=== PATIENT | female | born 1940 | race Caucasian/White ===

== ENCOUNTER 2017-02-27 12:54 | Emergency (ER) | payer MEDICARE, BC ==
[~2017-02-27] VITALS: Ht 152.4 cm; Wt 81.6 kg
[~2017-02-27 12:54] MED LIST: ACET325T53 PO; AMMO385C4 TP; BACL10TA PO; BUPR100T13 PO; CALC-555 PO; CELE-85 PO; DESL5TAB42 PO; DULO60CA63 PO; FENT1PAT5 TD; FLUT16SP2 ALT NOSTRI; FURO40TA5 PO; GABA800T2 PO; HYDR2TAB8 PO; LEVO100T10 PO; LIDO30AD10 TD; MECL-126 PO; METH20TA9 PO; METO25TA6 PO; MONT10TA22 PO; NITR100C11 PO; PANT40TA4 PO; POTA10TA15 PO; RIVA10TA PO; SENN-86 PO; SIMV10TA6 PO; SPIR25TA4 PO; TIOT18CA3 IH; [UNRECOGNIZED DRUG - CODE] PO
--- NOTE | 2017-02-27 13:43 | NUR ---
Pt ambulatory to bed 4a via walker, dr caceres at bedside for exam.
--- NOTE | 2017-02-27 13:43 | NUR ---
Pt to ct via wc.
--- NOTE | 2017-02-27 14:09 | NUR ---
Pt back from ct and waiting for results.
--- NOTE | 2017-02-27 14:47 | NUR ---
Pt dc;ed home w/ aci.
[2017-02-27 14:48] VITALS: BP 130/78
== END 2017-02-27 14:49 | disposition home or self-care (01) ==
LOC: ER 12:54
DX: S05.11XA Contusion of eyeball and orbital tissues, right eye, initial encounter (principal); S09.90XA Unspecified injury of head, initial encounter; F17.200 Nicotine dependence, unspecified, uncomplicated; I10 Essential (primary) hypertension; I50.9 Heart failure, unspecified; I25.10 Atherosclerotic heart disease of native coronary artery without angina pectoris; J44.9 Chronic obstructive pulmonary disease, unspecified; E03.9 Hypothyroidism, unspecified; Z88.0 Allergy status to penicillin; Z88.2 Allergy status to sulfonamides; Z88.8 Allergy status to other drugs, medicaments and biological substances; Z88.6 Allergy status to analgesic agent; Z91.018 Allergy to other foods; W18.30XA Fall on same level, unspecified, initial encounter; Y93.89 Activity, other specified; Y99.8 Other external cause status; Y92.89 Other specified places as the place of occurrence of the external cause
CPT/HCPCS: 70450; 70480; 99284; A4663

== ENCOUNTER 2017-03-26 17:07 | Inpatient (IN) | payer MEDICARE, BC ==
[~2017-03-26] VITALS: Ht 152.4 cm; Wt 79.0 kg
[2017-03-26] MEDS ORDERED: DOCU100T2 PO (18:01)
[2017-03-26] MEDS ORDERED: MENT71OI TP (18:01)
[2017-03-26] MEDS ORDERED: DICL100G3 TP (18:01)
[2017-03-26] MEDS ORDERED: ATOR10TA PO (18:01)
[2017-03-26] MEDS ORDERED: [UNRECOGNIZED DRUG - CODE] TP (18:01)
[2017-03-26] MEDS ORDERED: NAPR220T66 PO (18:01)
[2017-03-26] MEDS ORDERED: METO2.5T2 PO (18:01)
--- NOTE | 2017-03-26 18:52 | NUR ---
dr mehta at the bedside for eval and exam.
[2017-03-26] MEDS ORDERED: IV NORMAL SALINE 1000 ML BAG IV ONE (19:00)
[2017-03-26] MEDS ORDERED: VANCOMYCIN IV 1,000 MG in IV DEXTROSE 5% 250 ML IV ONE (19:00)
[2017-03-26] MEDS ORDERED: CLINDAMYCIN PHOSPHATE IV 600 MG in IV DEXTROSE 5% 100 ML IV ONE (19:00)
[2017-03-26 19:21] LABS: BASOPHILS # (AUTO) 0.1 K/uL (0.0-8.0); EOSINOPHILS # (AUTO) 0.3 K/uL (0.0-0.7); EOSINOPHILS % (AUTO) 2.6 % (0.0-7.0); HEMATOCRIT 34.3 % (37-47); HEMOGLOBIN 11.3 G/DL (12.0-16.0); LYMPHOCYTES # (AUTO) 1.1 K/uL (20.0-40.0); LYMPHOCYTES % (AUTO) 9.8 % (20.5-51.5); MEAN CORPUSCULAR HEMOGLOBIN 28.5 UUG (27.0-31.0); MEAN CORPUSCULAR HGB CONC 33 g/dL (32.0-37.0); MEAN CORPUSCULAR VOLUME 86.5 FL (81.0-99.0); MONOCYTES # (AUTO) 1.3 K/uL (2.0-10.0); MONOCYTES % (AUTO) 10.9 % (0.0-11.0); NEUTROPHILS # (AUTO) 8.8 K/uL (1.8-8.9); NEUTROPHILS % (AUTO) 75.7 % (38.5-71.5); PLATELET COUNT (AUTO) 277 K/UL (150-450); RED BLOOD CELL COUNT(AUTO) 3.97 MIL/UL (4.2-5.4); RED CELL DISTRIBUTION WIDTH 15.5 % (11.5-14.5); WHITE BLOOD COUNT (AUTO) 11.6 K/UL (4.0-11.2)
[2017-03-26] MEDS ORDERED: CLINDAMYCIN PHOSPHATE 600 MG/4 ML VIAL ONE (19:29)
[2017-03-26 19:30] LABS: CREATININE 1.1 mg/dL (0.6-1.3); POTASSIUM 3.4 mmol/L (3.5-5.1)
[2017-03-26 19:40] LABS: ALBUMIN 3.5 g/dL (3.4-5.0); BILIRUBIN,DIRECT 0.1 mg/dL (0.0-0.2); BILIRUBIN,TOTAL 0.4 mg/dL (0.2-1.0); TOTAL PROTEIN, SERUM 7.8 g/dL (6.4-8.2)
[2017-03-26 20:09] LABS: ANISOCYTOSIS 1+
[2017-03-26] MEDS ORDERED: VANCOMYCIN IV 200 ML ONE (20:20)
--- NOTE | 2017-03-26 20:39 | NUR ---
Pt. admitted to [facility], under care of Dr. HO Belongs List completed
[2017-03-26 20:54] LABS: *BILIRUBIN,URIN NEGATIVE (NEGATIVE); *BLOOD, URINE Trace-intact (NEGATIVE); *COLOR,URINE LIGHT YELLOW (YELLOW); *KETONES,URINE NEGATIVE (NEGATIVE); *PROTEIN,URINE NEGATIVE (NEGATIVE); *UROBILINOGEN,URINE 0.2 E.U./dl (NORMAL); LEUKOCYTE ESTERASE ,URINE 1+ (NEGATIVE); NITRITE, URINE NEGATIVE (NEGATIVE); UGLUCOSE NEGATIVE (NEGATIVE)
--- NOTE | 2017-03-26 21:00 | NUR ---
Admitted a female pt from ER with admitting DX: Cellulitis on right lower leg. Awake, AOx4 and anxious. Routine admission care done. Plan of care initiated.
[2017-03-26 21:01] LABS: *CLARITY,URINE SLIGHTLY HAZY (CLEAR)
[2017-03-26 21:02] LABS: BACTERIA,URINE MODERATE /HPF (NONE SEEN); SQUAMOUS EPITHELIAL CELL,UR FEW /HPF (NONE SEEN)
[2017-03-26 21:05] VITALS: BP 124/59
--- NOTE | 2017-03-26 22:40 | NUR ---
Medicated for pain as needed and ordered. Will continue to monitor.
[2017-03-26] MEDS ORDERED: HYDROMORPHONE HCL 2 MG TABLET ONE (22:44)
[2017-03-26] MEDS ORDERED: GABAPENTIN 400 MG CAPSULE ONE (22:45)
--- NOTE | 2017-03-27 00:10 | NUR ---
Sleeping soundly during rounds.
--- NOTE | 2017-03-27 05:01 | NUR ---
No significant event reported all night. All needs attended and met. No further complaint presented. Safety measure and fall precaution maintained. Continue care as planned.
[2017-03-27 06:00] VITALS: BP 98/47
--- NOTE | 2017-03-27 06:54 | NUR ---
Report given to Yany.
[2017-03-27 06:58] LABS: CALCIUM 8.5 mg/dL (8.5-10.1)
[2017-03-27] MEDS ORDERED: Medication Not On Formulary EA (Docusate Sodium 100 MG) PO PRN (07:15)
[2017-03-27] MEDS ORDERED: MECLIZINE HCL 25 MG PO PRN (07:15)
[2017-03-27 07:17] LABS: BASOPHILS % (AUTO) 0.4 % (0.0-2.0); EOSINOPHILS # (AUTO) 0.2 K/uL (0.0-0.7); EOSINOPHILS % (AUTO) 1.9 % (0.0-7.0); HEMATOCRIT 32.3 % (37-47); HEMOGLOBIN 10.8 G/DL (12.0-16.0); LYMPHOCYTES # (AUTO) 0.5 K/uL (20.0-40.0); LYMPHOCYTES % (AUTO) 5.3 % (20.5-51.5); MEAN CORPUSCULAR HEMOGLOBIN 28.9 UUG (27.0-31.0); MEAN CORPUSCULAR HGB CONC 33 g/dL (32.0-37.0); MEAN CORPUSCULAR VOLUME 86.4 FL (81.0-99.0); MONOCYTES % (AUTO) 9.9 % (0.0-11.0); NEUTROPHILS % (AUTO) 82.5 % (38.5-71.5); PLATELET COUNT (AUTO) 245 K/UL (150-450); RED BLOOD CELL COUNT(AUTO) 3.74 MIL/UL (4.2-5.4); RED CELL DISTRIBUTION WIDTH 15.2 % (11.5-14.5); WHITE BLOOD COUNT (AUTO) 9.7 K/UL (4.0-11.2)
[2017-03-27] MEDS ORDERED: DOCUSATE SODIUM 100 MG CAPSULE PO PRN (07:45)
[2017-03-27] MEDS ORDERED: MECLIZINE HCL 25 MG TABLET PO PRN (07:45)
[2017-03-27] MEDS: METOLAZONE 2.5 MG TABLET PO SCH (08:10)
[2017-03-27] MEDS: DULOXETINE 60 MG CAPSULE.DR PO SCH (08:10)
[2017-03-27] MEDS: CELECOXIB 200 MG CAPSULE PO SCH (08:10)
[2017-03-27] MEDS: LEVOTHYROXINE SODIUM 100 MCG TABLET PO SCH (08:11)
[2017-03-27] MEDS: buPROPion 100 MG TABLET PO SCH (08:11)
[2017-03-27] MEDS: PANTOPRAZOLE SODIUM 40 MG TABLET.DR PO SCH (08:11)
[2017-03-27] MEDS: BACLOFEN 10 MG TABLET PO SCH ×2 (08:11→16:27)
[2017-03-27] MEDS: POTASSIUM CHLORIDE 10 MEQ CAPSULE.SA PO SCH (08:11)
[2017-03-27] MEDS: FUROSEMIDE 40 MG TABLET PO SCH (08:11)
[2017-03-27] MEDS: ATORVASTATIN 10 MG TABLET PO SCH ×2 (08:17→20:49)
[2017-03-27] MEDS: MONTELUKAST SODIUM 10 MG TABLET PO SCH ×2 (08:17→20:49)
[2017-03-27] MEDS: FLUTICASONE PROP NASAL SPRAY 16 GM BOTTLE NS SCH (08:31)
[2017-03-27] MEDS ORDERED: FENTANYL 50 MCG/HR PATCH TD SCH (09:00)
[2017-03-27] MEDS ORDERED: METHYLPHENIDATE HCL 5 MG TABLET PO SCH (09:00)
[2017-03-27] MEDS ORDERED: Medication Not On Formulary EA (Methylphenidate Hcl 20 MG) PO SCH (09:00)
[2017-03-27] MEDS ORDERED: Medication Not On Formulary EA (Gabapentin 800 MG) PO SCH (09:00)
[2017-03-27] MEDS ORDERED: SPIRONOLACTONE 25 MG TABLET PO SCH (09:00)
[2017-03-27] MEDS ORDERED: Z GUARD REMEDY PASTE 57 GM TUBE TP SCH (09:00)
[2017-03-27] MEDS: GABAPENTIN 400 MG CAPSULE PO SCH ×3 (10:05→16:27)
[2017-03-27] MEDS: LIDOCAINE 5% PATCH TD SCH (10:33)
[2017-03-27] MEDS: METHYLPHENIDATE HCL 5 MG TABLET PO SCH ×4 (10:33→20:50)
[2017-03-27 11:54] VITALS: BP 90/46
--- NOTE | 2017-03-27 13:13 | NUR ---
WOUND CARE CONSULT: PT PRESENTS WITH LEFT ELBOW WOUND WITH HARDWARE EXPOSURE AND RT LOWER LEG ULCER, PRESENT ON ADMISSION. REDNESS NOTED TO LOWER LEGS WITH DRYNESS. RECOMMENDATIONS MADE FOR WOUND CARE AND SKIN PROTECTION. SURGICAL CONSULT RECOMMENDED. ALL SKIN AND WOUND RECOMMENDATIONS DISCUSSED WITH NURSING STAFF. IN AGREEMENT WITH PLAN OF CARE. Addendum: 03/27/17 at 1316 by TESFAYE ELLIS RN Amended: Links added.
[2017-03-27] MEDS ORDERED: Z GUARD REMEDY PASTE 57 GM TUBE TOP PRN (13:15)
[2017-03-27] MEDS ORDERED: POTASSIUM CHLORIDE 10 MEQ CAPSULE.SA PO ONE ×2 (14:00→16:00)
--- NOTE | 2017-03-27 14:37 | NUR ---
CLINICAL PHARMACY NOTE - VANCOMYCIN PHARMACY TO DOSE Subjective: To start vancomycin in this 76 y/o female for cellulitis Objective: height: 152 cm weight: 79kg BUN 23 Scr 1.0 Wbc 9.7 Temp 97.7 1gm vancomycin given in ER 03/26 @ 2025 Assessment/Plan Will start regimen of 1250mg q28hrs for expected trough of 15.14. First dose due today at 2100. Will order trough before 4th scheduled dose of regimen. Will also check renal function daily and change regimen were it to change/become unstable. Will continue to follow.
[2017-03-27] MEDS: HYDROCORTISONE 0.5% CREAM 28.35 GM TUBE TP PRN (14:46)
[2017-03-27] MEDS: CADEXOMER IODINE 40 GM TUBE TOP SCH (15:07)
[2017-03-27 15:47] VITALS: BP 116/55
[2017-03-27] MEDS ORDERED: FENTANYL 100MCG/HR PATCH TD SCH (16:00)
--- NOTE | 2017-03-27 16:00 | NUR ---
dressing change per md orders.
[2017-03-27] MEDS: SPIRONOLACTONE 25 MG TABLET PO SCH (16:27)
[2017-03-27] MEDS: RIVAROXABAN 10 MG TABLET PO SCH (17:04)
[2017-03-27 20:00] VITALS: BP 108/58
--- NOTE | 2017-03-27 20:00 | NUR ---
nsg: Received patient laying in bed. a/o awake. no c/o pain or discomfort. on 02 @ 2L/MIN SATING 96 %.
[2017-03-27] MEDS: VANCOMYCIN IV 1,250 MG in IV DEXTROSE 5% 500 ML IV SCH (20:04)
[2017-03-27] MEDS: Z GUARD REMEDY PASTE 57 GM TUBE TOP SCH (20:51)
--- NOTE | 2017-03-27 21:00 | NUR ---
nsg: compliant with medication. changed ivhl due to unable to flesh. continue plan of care.
--- NOTE | 2017-03-28 01:17 | NUR ---
nsg: teresita resting eye close. assisted with adl's. given. kept clean and dry and comfortable. continue plan of care.
[2017-03-28 04:00] VITALS: BP 104/58
[2017-03-28] MEDS: HYDROMORPHONE HCL 2 MG TABLET PO PRN ×2 (05:28→21:02)
--- NOTE | 2017-03-28 05:29 | NUR ---
nsg: patient c/o right leg pain 8/10 pain level. Dilaudid 2 mg po given per patient requested.
--- NOTE | 2017-03-28 05:34 | NUR ---
NSG: PATIENT A/O X3 BUT FORGETFUL. REMAIN CALM AND COOPERATIVE WITH CARE AND MEDICATION. PAIN MEDS GIVEN X1 ONLY. ASSISTED WITH ADL'S.
[2017-03-28] MEDS: PANTOPRAZOLE SODIUM 40 MG TABLET.DR PO SCH (06:11)
[2017-03-28] MEDS: LEVOTHYROXINE SODIUM 100 MCG TABLET PO SCH (06:40)
[2017-03-28 07:04] LABS: CALCIUM 8.6 mg/dL (8.5-10.1); CREATININE 0.9 mg/dL (0.6-1.3); POTASSIUM 3.6 mmol/L (3.5-5.1)
[2017-03-28] MEDS: LIDOCAINE 5% PATCH TD SCH (08:30)
[2017-03-28] MEDS: GABAPENTIN 400 MG CAPSULE PO SCH ×3 (08:32→17:32)
[2017-03-28] MEDS: buPROPion 100 MG TABLET PO SCH (08:33)
[2017-03-28] MEDS: METHYLPHENIDATE HCL 5 MG TABLET PO SCH ×2 (08:34→13:05)
[2017-03-28] MEDS: METOLAZONE 2.5 MG TABLET PO SCH (08:34)
[2017-03-28] MEDS: DULOXETINE 60 MG CAPSULE.DR PO SCH (08:35)
[2017-03-28] MEDS: FUROSEMIDE 40 MG TABLET PO SCH (08:35)
[2017-03-28] MEDS: BACLOFEN 10 MG TABLET PO SCH ×2 (08:35→17:33)
[2017-03-28] MEDS: CELECOXIB 200 MG CAPSULE PO SCH (08:36)
[2017-03-28] MEDS: POTASSIUM CHLORIDE 10 MEQ CAPSULE.SA PO SCH (08:36)
[2017-03-28] MEDS: SPIRONOLACTONE 25 MG TABLET PO SCH ×2 (08:37→17:32)
[2017-03-28] MEDS: FLUTICASONE PROP NASAL SPRAY 16 GM BOTTLE NS SCH (08:38)
[2017-03-28] MEDS: CADEXOMER IODINE 40 GM TUBE TOP SCH (08:44)
[2017-03-28] MEDS: Z GUARD REMEDY PASTE 57 GM TUBE TOP SCH ×2 (08:44→20:32)
[2017-03-28] MEDS: HYDROCORTISONE 0.5% CREAM 28.35 GM TUBE TP PRN ×2 (11:24→20:36)
[2017-03-28 12:00] VITALS: BP 137/64
--- NOTE | 2017-03-28 13:45 | NUR ---
PHARMACY CLINICAL NOTES ( VANCOMYCIN DOSING) S: 76 YO female, currently on Vancomycin 1250 mg q28h for DX of cellulitis O: BUN 22 SCR 0.9 Temp 98.4 Crcl 59.6 ml/min A/P: Will continue with current dose. Second dose is due 03/29 @ 0100. As previously planned will order trough prior to 4th dose on 03/31 ~0900 and will adjust the dose according to result/ Or will adjust the dose if SCR will change. will continue monitoring.
[2017-03-28 15:05] VITALS: BP 122/67
[2017-03-28] MEDS: METHYLPHENIDATE 20 MG PO SCH ×2 (17:33→20:40)
[2017-03-28] MEDS: RIVAROXABAN 10 MG TABLET PO SCH (17:37)
--- NOTE | 2017-03-28 18:02 | NUR ---
PATIENT HAVE BEEN IN BED RESTING, SLEEPING INTERMITTENTLY DURING THE DAY. NO S/S OF DISTRESS NOTED DURING MY SHIFT. C/O OF BACK PAIN, LIDOCAINE PATCH WAS GIVEN FOR COMFORT ORDERED. IV STILL INTACT. WOUND TREATMENT WAS DONE ORDERED. APPLIED HYDROCORTISONE CREAM FOR ITCHINESS AND DRY SKIN. GOOD APPETITE. COOPERATIVE WITH TREATMENT AND INTERVENTIONS. WOUND CULTURE WAS TAKEN AND SENT TO LAB FROM THE RIGHT LEG. CALL LIGHT AT REACH. SAFETY AND COMFORT PROVIDED BY STAFF. WILL CONTINUE MONITORING.
[2017-03-28 20:00] VITALS: BP 111/63
[2017-03-28 20:05] VITALS: BP 124/96
[2017-03-28] MEDS: MONTELUKAST SODIUM 10 MG TABLET PO SCH (20:31)
[2017-03-28] MEDS: ATORVASTATIN 10 MG TABLET PO SCH (20:31)
[2017-03-29] MEDS: VANCOMYCIN IV 1,250 MG in IV DEXTROSE 5% 500 ML IV SCH (00:48)
[2017-03-29 05:24] VITALS: BP 125/63
[2017-03-29] MEDS: PANTOPRAZOLE SODIUM 40 MG TABLET.DR PO SCH (06:14)
[2017-03-29] MEDS: FLUTICASONE PROP NASAL SPRAY 16 GM BOTTLE NS SCH (08:30)
[2017-03-29] MEDS: POTASSIUM CHLORIDE 10 MEQ CAPSULE.SA PO SCH (08:31)
[2017-03-29] MEDS: METOLAZONE 2.5 MG TABLET PO SCH (08:31)
[2017-03-29] MEDS: BACLOFEN 10 MG TABLET PO SCH ×2 (08:32→17:06)
[2017-03-29] MEDS: buPROPion 100 MG TABLET PO SCH (08:32)
[2017-03-29] MEDS: DULOXETINE 60 MG CAPSULE.DR PO SCH (08:32)
[2017-03-29] MEDS: SPIRONOLACTONE 25 MG TABLET PO SCH ×2 (08:33→17:06)
[2017-03-29] MEDS: FUROSEMIDE 40 MG TABLET PO SCH (08:33)
[2017-03-29] MEDS: GABAPENTIN 400 MG CAPSULE PO SCH ×3 (08:33→17:06)
[2017-03-29] MEDS: LEVOTHYROXINE SODIUM 100 MCG TABLET PO SCH (08:33)
[2017-03-29] MEDS: CELECOXIB 200 MG CAPSULE PO SCH (08:33)
[2017-03-29] MEDS: LIDOCAINE 5% PATCH TD SCH (08:36)
[2017-03-29] MEDS: CADEXOMER IODINE 40 GM TUBE TOP SCH (08:36)
[2017-03-29] MEDS: Z GUARD REMEDY PASTE 57 GM TUBE TOP SCH ×2 (08:36→20:53)
[2017-03-29] MEDS: HYDROCORTISONE 0.5% CREAM 28.35 GM TUBE TP PRN (08:37)
[2017-03-29] MEDS: METHYLPHENIDATE 20 MG PO SCH ×4 (08:48→20:52)
[2017-03-29] MEDS ORDERED: FENTANYL 100MCG/HR PATCH TD SCH (09:00)
--- NOTE | 2017-03-29 10:52 | NUR ---
PATIENT C/O OF PAIN DURING THE MORNING REQUESTING HER FENTANYL PATCH, SHE STATED THAT SHE DOES NOT HAVE A PATCH, SHE REMEMBERS GETTING ONE, BUT ITS NOT THERE ANYMORE. SKIN WAS CHECKED BY ANAND CUELLAR AND I AND PATCH IT NOT WHERE TO FOUND. CALLED PHARMACY TO EXPLAIN THE SITUATION, THEY RETIME THE PATCH. A PATCH WAS GIVEN AT 0835. I ASSESSED PATIENT AND SHE IS A/O X 4, NO S/S OF ACUTE DISTRESS NOTED, AND STATED THAT HER PAIN WAS RELIEF 03/02. WILL CONTINUE MONITORING.
--- NOTE | 2017-03-29 11:08 | NUR ---
CLINICAL PHARMACY NOTE:VANCOMYCIN DOSING Subjective: vancomycin dosing to continue for this 76 y/o female 152 cm for cellulitis. Objective: Temp 98.4F BUN 22 (/6) Scr 0.9 (5/6) WBC 9.7 (/) Dosing wt= 79kg, Assessment/Plan: Will continue same dose of vancomycin 125mg IVPB q28hr for today. Third dose is due tomorrow at 0500. Plan to draw vancomycin trough level before 4th dose (not yet ordered). Will continue to follow
[2017-03-29 11:49] VITALS: BP 101/61
[2017-03-29] MEDS: HYDROMORPHONE HCL 2 MG TABLET PO PRN ×2 (12:26→19:48)
--- NOTE | 2017-03-29 15:58 | NUR ---
The patient is not able to recall who did the surgery on her arm. She only remembers being at [facility] for rehabilitation prior going to [facility]. Spoke to Dory from [facility] and she was not able to find out which hospital they admitted her in the past. She stated that the patient's other records are in their basement and she will have access to it tomorrow. She will call back once she has an answer. Spoke to Bret from [facility] and they will also try to find out which hospital and surgeon did the operation. Also spoke to the patient's step-daughter, Venita Valle [ ], but she doesn't know the details because she stated she really has not been in touch with the patient due to her busy schedule. She recommended to contact the patient's friend, Navid. The patient refused to give Navid's phone number and stated she will call him to find out which hospital and which MD did the surgery. CM/SW will follow-up.
[2017-03-29 16:29] VITALS: BP 94/64
[2017-03-29] MEDS: RIVAROXABAN 10 MG TABLET PO SCH (17:08)
--- NOTE | 2017-03-29 18:37 | NUR ---
PATIENT IN BED RESTING AT THIS MOMENT. NO S/S OF DISTRESS NOTED. WOUND TREATMENT WAS DONE, A WOUND CULTURE WAS COLLECTED AND SENT TO LAB PER STUDENT WORKER REQUEST. E-COLI FOUND IN THE URINE, REPORT WILL BE ENDORSE TO NEXT SHIFT. SAFETY AND COMFORT PROVIDED. WILL CONTINUE MONITORING.
[2017-03-29 20:00] VITALS: BP 129/78
[2017-03-29] MEDS: ATORVASTATIN 10 MG TABLET PO SCH (20:51)
[2017-03-29] MEDS: MONTELUKAST SODIUM 10 MG TABLET PO SCH (20:51)
[2017-03-30 04:33] VITALS: BP 98/55
[2017-03-30] MEDS: VANCOMYCIN IV 1,250 MG in IV DEXTROSE 5% 500 ML IV SCH (06:08)
[2017-03-30] MEDS: LEVOTHYROXINE SODIUM 100 MCG TABLET PO SCH (06:09)
[2017-03-30] MEDS: PANTOPRAZOLE SODIUM 40 MG TABLET.DR PO SCH (06:09)
[2017-03-30] MEDS: HYDROMORPHONE HCL 2 MG TABLET PO PRN ×3 (06:31→20:06)
--- NOTE | 2017-03-30 06:58 | NUR ---
PT IN BED RESTING, SLEPT INTERMITTENTLY DURING SHIFT. C/O POSTERIOR NECK PAIN 07/02, CONTROLLED WITH DILAUDID PO PRESCRIBED. NEEDS ATTENDED AND MET. SAFETY MAINTAINED. CALL LIGHT WITHIN REACH.
[2017-03-30] MEDS: GABAPENTIN 400 MG CAPSULE PO SCH ×3 (08:12→16:57)
[2017-03-30] MEDS: METOLAZONE 2.5 MG TABLET PO SCH (08:12)
[2017-03-30] MEDS: POTASSIUM CHLORIDE 10 MEQ CAPSULE.SA PO SCH (08:12)
[2017-03-30] MEDS: CELECOXIB 200 MG CAPSULE PO SCH (08:13)
[2017-03-30] MEDS: DULOXETINE 60 MG CAPSULE.DR PO SCH (08:13)
[2017-03-30] MEDS: buPROPion 100 MG TABLET PO SCH (08:13)
[2017-03-30] MEDS: METHYLPHENIDATE 20 MG PO SCH ×3 (08:13→16:56)
[2017-03-30] MEDS: BACLOFEN 10 MG TABLET PO SCH ×2 (08:13→16:57)
[2017-03-30] MEDS: FUROSEMIDE 40 MG TABLET PO SCH (08:13)
[2017-03-30] MEDS: FLUTICASONE PROP NASAL SPRAY 16 GM BOTTLE NS SCH (08:14)
[2017-03-30] MEDS: SPIRONOLACTONE 25 MG TABLET PO SCH ×2 (08:14→16:57)
[2017-03-30] MEDS: CADEXOMER IODINE 40 GM TUBE TOP SCH (08:15)
[2017-03-30] MEDS: Z GUARD REMEDY PASTE 57 GM TUBE TOP SCH ×2 (08:15→20:44)
--- NOTE | 2017-03-30 09:05 | NUR ---
PT RESTING IN BED WATCHING TV, IN NO ACUTE DISTRESS. ALL DUE MEDICATIONS GIVEN. PT REQUESTING LIDOCAINE PATCH BE GIVEN HS. CALLED PHARMACY AND HAD IT RESCHEDULED. RETURNED LIDOCAINE PATCH IN DROP BOX. CALL LIGHT IN REACH
[2017-03-30 09:51] LABS: CALCIUM 8.9 mg/dL (8.5-10.1); CREATININE 0.9 mg/dL (0.6-1.3)
--- NOTE | 2017-03-30 10:45 | NUR ---
PLASTICS IN ROOM WITH PT
--- NOTE | 2017-03-30 11:14 | NUR ---
Clinical Pharmacy Note: Gentamicin Dosing per Pharmacy Subjective: Gentamicin dosing to start on this 76 yo female patient for UTI. Objective: BUN 21/Scr 0.9 WBC 9.7 (/) Temperature 98.3 wt 174 lb ht 5' Assessment/Plan: Will start gentamicin 80mg IVPB q18hrs for predicted peak level of 6.1, and trough level of 0.8. First dose is due today at noon. Will draw gentamicin peak and trough levels around the 3rd dose dose (not yet ordered). Will closely monitor renal function. Will continue to follow amikacin IV therapy closely daily.
[2017-03-30 11:45] VITALS: BP 119/64
[2017-03-30] MEDS: GENTAMICIN SULFATE INJ 80 MG in IV DEXTROSE 5% 50 ML IV SCH (12:12)
--- NOTE | 2017-03-30 12:37 | NUR ---
Lamar from [facility] informed this hydro excavation operator that they received the patient last year from [facility]. Called [facility] Medical Records [ ; ] and spoke to Yasmin and she confirmed that the patient was there from 07/06/16 to 07/10/17 before getting discharged to [facility]. Faxed the Release of Information to [place] and awaiting for her medical records. Addendum: 03/30/17 at 1442 by YUSUF AMOR CMG Received 131-pages of Medical Records from [facility]. The orthopedic MD that did an ORIG L distal humerus is Dr. Hassan. She was at [facility] after her [facility] hospitalization from 07/10/16 to 10/20/16 before going to [facility].
--- NOTE | 2017-03-30 15:31 | NUR ---
LEFT ELBOW/RIGHT LEG DRESSINGS CHANGED. APPLIED A&D OINTMENT TO RIGHT LOWER LEG.
[2017-03-30 16:00] VITALS: BP 122/70
[2017-03-30] MEDS: MUPIROCIN 2% OINT 22 GM TUBE NS SCH ×2 (16:56→20:43)
[2017-03-30] MEDS: RIVAROXABAN 10 MG TABLET PO SCH (16:58)
--- NOTE | 2017-03-30 18:32 | NUR ---
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 NO OTHER CHANGES NOTED THROUGHOUT SHIFT, PT RESTING IN BED, ALL SAFETY AND COMFORT MEASURES MAINTAINED, CALL LIGHT IN REACH
--- NOTE | 2017-03-30 19:30 | NUR ---
RESTING IN BED COMFORTABLY. NO ACUTE DISTRESS NOTED. ABLE TO MAKE NEEDS KNOWN. NEEDS ATTENDED. CALL LIGHT WITHIN REACH. WILL MONITOR
[2017-03-30 20:14] VITALS: BP 107/63
[2017-03-30] MEDS: ATORVASTATIN 10 MG TABLET PO SCH (20:43)
[2017-03-30] MEDS: MONTELUKAST SODIUM 10 MG TABLET PO SCH (20:43)
[2017-03-30] MEDS: METHYLPHENIDATE HCL 5 MG TABLET PO SCH (20:59)
[2017-03-30] MEDS ORDERED: LIDOCAINE 5% PATCH TD SCH (21:00)
[2017-03-31 05:00] VITALS: BP 110/65
[2017-03-31] MEDS: GENTAMICIN SULFATE INJ 80 MG in IV DEXTROSE 5% 50 ML IV SCH (05:21)
[2017-03-31] MEDS: HYDROMORPHONE HCL 2 MG TABLET PO PRN (05:42)
[2017-03-31] MEDS: LEVOTHYROXINE SODIUM 100 MCG TABLET PO SCH (06:15)
[2017-03-31] MEDS: PANTOPRAZOLE SODIUM 40 MG TABLET.DR PO SCH (06:15)
--- NOTE | 2017-03-31 06:25 | NUR ---
ABLE TO REST WELL DURING THE SHIFT. NO ACUTE DISTRESS NOTED. PAIN CONTROLLED WITH MEDICATION ORDERED. ALL DUE MEDS GIVEN ORDERED. KEPT CLEAN AND DRY. CALL LIGHT WITHIN REACH.
--- NOTE | 2017-03-31 07:10 | NUR ---
PT AWAKE IN BED, NO ACUTE DISTRESS, IV INTACT AND PATENT, WOUND DRESSING DRY AND INTACT CONTACT ISOLATION MAINTAINED, CALL LIGHT IN REACH, WILL CONTINUE TO MONITOR
[2017-03-31 07:25] LABS: BASOPHILS % (AUTO) 0.5 % (0.0-2.0); EOSINOPHILS # (AUTO) 0.2 K/uL (0.0-0.7); EOSINOPHILS % (AUTO) 2.8 % (0.0-7.0); HEMOGLOBIN 12.8 G/DL (12.0-16.0); LYMPHOCYTES # (AUTO) 0.7 K/UL (0.8-4.8); LYMPHOCYTES % (AUTO) 10.1 % (20.5-51.5); MEAN CORPUSCULAR HEMOGLOBIN 28.3 UUG (27.0-31.0); MEAN CORPUSCULAR HGB CONC 33 g/dL (32.0-37.0); MEAN CORPUSCULAR VOLUME 86.3 FL (81.0-99.0); MONOCYTES # (AUTO) 0.9 K/UL (0.1-1.30); MONOCYTES % (AUTO) 12.4 % (0.0-11.0); NEUTROPHILS # (AUTO) 5.4 K/UL (1.8-8.9); NEUTROPHILS % (AUTO) 74.2 % (38.5-71.5); PLATELET COUNT (AUTO) 280 K/UL (150-450); RED BLOOD CELL COUNT(AUTO) 4.51 MIL/UL (4.2-5.4); RED CELL DISTRIBUTION WIDTH 15.4 % (11.5-14.5); WHITE BLOOD COUNT (AUTO) 7.3 K/UL (4.0-11.2)
[2017-03-31 07:58] LABS: ALBUMIN 3.3 g/dL (3.4-5.0); BILIRUBIN,TOTAL 0.4 mg/dL (0.2-1.0); CALCIUM 9.4 mg/dL (8.5-10.1); PHOSPHOROUS 4.2 mg/dL (2.5-4.9); POTASSIUM 3.3 mmol/L (3.5-5.1)
[2017-03-31] MEDS: SPIRONOLACTONE 25 MG TABLET PO SCH (08:08)
[2017-03-31] MEDS: METOLAZONE 2.5 MG TABLET PO SCH (08:08)
[2017-03-31] MEDS: buPROPion 100 MG TABLET PO SCH (08:08)
[2017-03-31] MEDS: FLUTICASONE PROP NASAL SPRAY 16 GM BOTTLE NS SCH (08:08)
[2017-03-31] MEDS: MUPIROCIN 2% OINT 22 GM TUBE NS SCH (08:08)
[2017-03-31] MEDS: POTASSIUM CHLORIDE 10 MEQ CAPSULE.SA PO SCH (08:09)
[2017-03-31] MEDS: BACLOFEN 10 MG TABLET PO SCH (08:09)
[2017-03-31] MEDS: METHYLPHENIDATE HCL 5 MG TABLET PO SCH ×2 (08:09→13:12)
[2017-03-31] MEDS: GABAPENTIN 400 MG CAPSULE PO SCH ×2 (08:09→13:12)
[2017-03-31] MEDS: DULOXETINE 60 MG CAPSULE.DR PO SCH (08:09)
[2017-03-31] MEDS: FUROSEMIDE 40 MG TABLET PO SCH (08:09)
[2017-03-31] MEDS: CELECOXIB 200 MG CAPSULE PO SCH (08:09)
[2017-03-31] MEDS: CADEXOMER IODINE 40 GM TUBE TOP SCH (08:10)
[2017-03-31] MEDS: Z GUARD REMEDY PASTE 57 GM TUBE TOP SCH (08:10)
[2017-03-31] MEDS ORDERED: FENT1PAT23 TD (08:26)
[2017-03-31] MEDS ORDERED: CADE40GE2 TOP (08:26)
[2017-03-31] MEDS ORDERED: RXGEN XX (08:26)
[2017-03-31] MEDS ORDERED: SPIR25TA PO (08:26)
[2017-03-31] MEDS ORDERED: Gabapentin PO (08:26)
[2017-03-31] MEDS ORDERED: RIVA10TA PO (08:26)
[2017-03-31] MEDS ORDERED: Potassium Chloride PO (08:26)
[2017-03-31] MEDS ORDERED: Docusate Sodium PO (08:26)
[2017-03-31] MEDS ORDERED: RXVAN XX (08:26)
[2017-03-31] MEDS ORDERED: MUPI22OI2 NS (08:26)
[2017-03-31] MEDS ORDERED: POTASSIUM CHLORIDE 10 MEQ CAPSULE.SA PO ONE (08:30)
--- NOTE | 2017-03-31 10:00 | NUR ---
Clinical Pharmacy Note: Gentamicin Dosing per Pharmacy Subjective: Gentamicin dosing to continue on this 76 yo female patient for UTI. Objective: BUN 23/Scr 1.0 WBC 7.3 Temperature 98.0 wt 174 lb ht 5' Assessment/Plan: Will continue gentamicin 80mg IVPB q18hrs for predicted peak level of 6.1, and trough level of 0.8. Second dose was given today at 0600. Will draw gentamicin peak and trough levels around the 4th dose dose (not yet ordered). Will closely monitor renal function. Will continue to follow closely daily.
--- NOTE | 2017-03-31 10:01 | NUR ---
CLINICAL PHARMACY NOTE:VANCOMYCIN DOSING Subjective: vancomycin dosing to continue for this 76 y/o female 152 cm for cellulitis. Objective: Temp 98F BUN 23 Scr 1 WBC 7.3 Dosing wt= 79kg, Assessment/Plan: Will continue same dose of vancomycin 1250mg IVPB q28hr for today. Next dose is due today at 0900. Plan to draw vancomycin trough level before the next dose (not yet ordered). Will continue to follow
[2017-03-31] MEDS: VANCOMYCIN IV 1,250 MG in IV DEXTROSE 5% 500 ML IV SCH (10:38)
[2017-03-31 12:00] VITALS: BP 103/62
--- NOTE | 2017-03-31 12:58 | NUR ---
Discharge: Once patient is medically cleared patient will be discharged to [facility] [[id number] [place] [address] ]. Patients room number is 14A. The patient is aware and agreeable with discharge plans. Notified Charge nurse, Flor ACKERMAN.
--- NOTE | 2017-03-31 15:04 | NUR ---
DISCHARGE PROTOCOL FOLLOWED, PICTURES TAKEN AND PLACED IN CHART. IV REMAINS INTACT DUE TO IV ABX TO BE GIVEN AT SNF. ALL BELONGINGS ACCOUNTED AND SENT WITH PATIENT. PT EDUCATED ON DISCHARGE INSTRUCTIONS AND VERBALIZED UNDERSTANDING. PT LEFT VIA GURNEY WITH AMBULANCE STAFF.
== END 2017-03-31 15:00 | DRG 559 ==
LOC: ER 17:07 → MED 20:32
PROVIDERS: ADMIT Internal Medicine; ATTEND Internal Medicine
DX: T84.59XA Infection and inflammatory reaction due to other internal joint prosthesis, initial encounter (principal); R53.2 Functional quadriplegia; L03.115 Cellulitis of right lower limb; N39.0 Urinary tract infection, site not specified; L03.114 Cellulitis of left upper limb; I87.331 Chronic venous hypertension (idiopathic) with ulcer and inflammation of right lower extremity; L97.819 Non-pressure chronic ulcer of other part of right lower leg with unspecified severity; T84.098A Other mechanical complication of other internal joint prosthesis, initial encounter; E03.9 Hypothyroidism, unspecified; J44.9 Chronic obstructive pulmonary disease, unspecified; I25.10 Atherosclerotic heart disease of native coronary artery without angina pectoris; G62.9 Polyneuropathy, unspecified; Y83.8 Other surgical procedures as the cause of abnormal reaction of the patient, or of later complication, without mention of misadventure at the time of the procedure; Y92.129 Unspecified place in nursing home as the place of occurrence of the external cause; Z96.653 Presence of artificial knee joint, bilateral; Z95.1 Presence of aortocoronary bypass graft; Z91.81 History of falling; Z86.718 Personal history of other venous thrombosis and embolism; B96.20 Unspecified Escherichia coli [E. coli] as the cause of diseases classified elsewhere; I11.0 Hypertensive heart disease with heart failure; I50.9 Heart failure, unspecified; E78.5 Hyperlipidemia, unspecified; G89.29 Other chronic pain; Z86.14 Personal history of Methicillin resistant Staphylococcus aureus infection; S51.001A Unspecified open wound of right elbow, initial encounter; Y79.8 Miscellaneous orthopedic devices associated with adverse incidents, not elsewhere classified
CPT/HCPCS: 36415; 71010; 73070; 83605; 83690; 83735; 84100; 85025; 85651; 86140; 87040; 87070; 87077; 87086; 93005; A4663; J1580; J3370; J3490; J3535; J7030; J7060

== ENCOUNTER 2017-06-03 17:14 | Emergency (ER) | payer MEDICARE, BC ==
[~2017-06-03] VITALS: Ht 154.9 cm; Wt 63.5 kg
[~2017-06-03 17:14] MED LIST changes: -ACET325T53 PO; -AMMO385C4 TP; +ATOR10TA PO; +CADE40GE2 TOP; -CALC-555 PO; +DOCU100T2 PO; +Docusate Sodium PO; +FENT1PAT23 TD; +Gabapentin PO; +MENT71OI TP; +METO2.5T2 PO; -METO25TA6 PO; +MUPI22OI2 NS; +NAPR220T66 PO; -NITR100C11 PO; +Potassium Chloride PO; +RXGEN XX; +RXVAN XX; -SENN-86 PO; -SIMV10TA6 PO; +SPIR25TA PO; -SPIR25TA4 PO; -TIOT18CA3 IH; -[UNRECOGNIZED DRUG - CODE] PO; +[UNRECOGNIZED DRUG - CODE] TP
--- NOTE | 2017-06-03 17:15 | NUR ---
DR NICHOLS AT THE BEDSIDE FOR EVAL AND EXAM.
[2017-06-03] MEDS ORDERED: METO25TA6 PO (18:14)
[2017-06-03] MEDS ORDERED: CALC-995 PO (18:14)
[2017-06-03] MEDS ORDERED: DOCU100C36 PO (18:14)
[2017-06-03] MEDS ORDERED: SENN-167 PO (18:14)
[2017-06-03] MEDS ORDERED: MOME13HF2 IH (18:14)
[2017-06-03] MEDS ORDERED: RIVA15TA2 PO (18:14)
[2017-06-03] MEDS ORDERED: PSYL1PAC8 PO (18:14)
[2017-06-03] MEDS ORDERED: TIOT18CA3 IH (18:14)
[2017-06-03] MEDS ORDERED: BUPR300T54 PO (18:14)
[2017-06-03] MEDS ORDERED: ACET325T53 PO (18:14)
[2017-06-03] MEDS ORDERED: SPIR25TA4 PO (18:14)
--- NOTE | 2017-06-03 18:44 | NUR ---
ATTEMPTED TO COLLECT URINE W/ BEDPAN, PT UNABLE TO URINATE AT THIS TIME.
[2017-06-03 18:56] LABS: BASOPHILS % (AUTO) 0.2 % (0.0-2.0); EOSINOPHILS # (AUTO) 0.2 K/uL (0.0-0.7); EOSINOPHILS % (AUTO) 1.4 % (0.0-7.0); HEMATOCRIT 34.6 % (37-47); HEMOGLOBIN 10.9 G/DL (12.0-16.0); LYMPHOCYTES # (AUTO) 0.5 K/UL (0.8-4.8); LYMPHOCYTES % (AUTO) 4.8 % (20.5-51.5); MEAN CORPUSCULAR HEMOGLOBIN 26.8 UUG (27.0-31.0); MEAN CORPUSCULAR HGB CONC 31 g/dL (32.0-37.0); MEAN CORPUSCULAR VOLUME 85.5 FL (81.0-99.0); MONOCYTES % (AUTO) 8.8 % (0.0-11.0); NEUTROPHILS # (AUTO) 9.6 K/UL (1.8-8.9); NEUTROPHILS % (AUTO) 84.8 % (38.5-71.5); PLATELET COUNT (AUTO) 271 K/UL (150-450); RED BLOOD CELL COUNT(AUTO) 4.05 MIL/UL (4.2-5.4); WHITE BLOOD COUNT (AUTO) 11.3 K/UL (4.0-11.2)
[2017-06-03 18:57] LABS: CARBON DIOXIDE 34 mmol/L (21-32); CHLORIDE 102 mmol/L (98-107); GLUCOSE 102 mg/dL (74-106); POTASSIUM 3.9 mmol/L (3.5-5.1); UREA NITROGEN, BLOOD 14 mg/dL (7-18)
[2017-06-03 19:03] LABS: ALANINE AMINOTRANSFERASE 11 U/L (14-59); ALKALINE PHOSPHATASE 83 U/L (50-136); ASPARTATE AMINOTRANSFERASE 15 U/L (15-37); BILIRUBIN,DIRECT 0.1 mg/dL (0.0-0.2); BILIRUBIN,TOTAL 0.3 mg/dL (0.2-1.0); TOTAL PROTEIN, SERUM 6.9 g/dL (6.4-8.2)
[2017-06-03] MEDS ORDERED: IV NORMAL SALINE 1000 ML BAG IV ONE (19:15)
--- NOTE | 2017-06-03 19:22 | NUR ---
Patient to radiology for CT scan via gurney.
[2017-06-03 20:15] LABS: *BILIRUBIN,URIN NEGATIVE (NEGATIVE); *BLOOD, URINE NEGATIVE (NEGATIVE); *COLOR,URINE YELLOW (YELLOW); *KETONES,URINE NEGATIVE (NEGATIVE); *PROTEIN,URINE NEGATIVE (NEGATIVE); *UROBILINOGEN,URINE 0.2 E.U./dl (NORMAL); LEUKOCYTE ESTERASE ,URINE 2+ (NEGATIVE); NITRITE, URINE NEGATIVE (NEGATIVE); PH,URINE 5.5 (5.0-8.0); UGLUCOSE NEGATIVE (NEGATIVE)
[2017-06-03 20:17] LABS: *CLARITY,URINE HAZY (CLEAR); WBC,URINE 20-50 /HPF (0-3)
[2017-06-03 20:18] LABS: SQUAMOUS EPITHELIAL CELL,UR FEW /HPF (NONE SEEN); YEAST,URINE FEW /HPF (NONE SEEN)
[2017-06-03] MEDS ORDERED: NITROFURANTOIN/NITROFURAN MAC 100 MG CAPSULE PO ONE (20:45)
--- NOTE | 2017-06-03 20:45 | NUR ---
Domo Lopez at bedside for PET evaluation.
--- NOTE | 2017-06-03 21:15 | NUR ---
Juliet contacted for transportation home, ETA 60 min. Spoke with Janet at [facility], report given, who stated she would receive the patient.
[2017-06-03] MEDS ORDERED: NITROFURANTOIN/NITROFURAN MAC 100 MG CAPSULE ONE (21:44)
--- NOTE | 2017-06-03 22:16 | NUR ---
[facility] arrived to transport patient.
--- NOTE | 2017-06-03 22:19 | NUR ---
Christian bojorquez in ED - 06/03/17 at 2220 by LICHA Patient discharged to home in stable conditon. Written and verbal after care instructions given. Patient verbalizes understanding of instructions.
--- NOTE | 2017-06-03 22:20 | NUR ---
Patient discharged to home, via ambulance, in stable conditon. Written and verbal after care instructions given. Patient verbalizes understanding of instructions.
== END 2017-06-03 22:24 | disposition home or self-care (01) ==
LOC: ER 17:22
DX: F22 Delusional disorders (principal); I11.0 Hypertensive heart disease with heart failure; I50.9 Heart failure, unspecified; J44.9 Chronic obstructive pulmonary disease, unspecified; E03.9 Hypothyroidism, unspecified; F17.200 Nicotine dependence, unspecified, uncomplicated; Z88.0 Allergy status to penicillin; Z88.2 Allergy status to sulfonamides; Z88.1 Allergy status to other antibiotic agents; Z91.018 Allergy to other foods; Z79.01 Long term (current) use of anticoagulants
CPT/HCPCS: 36415; 70450; 80048; 80076; 81001; 82140; 84443; 85025; 96360; 99285; A4663; J7040; J7030